=== PATIENT | female | born 1960 | race Caucasian/White ===

== ENCOUNTER 2021-01-21 16:03 | Outpatient (REF) | payer BC, SELFPAY ==
[2021-01-21 14:18] LABS: Calculated LDL 210 mg/dL (<100); Cholesterol 306 mg/dL (<200); Glucose 100 mg/dL (74-106); HDL Cholesterol 81 mg/dL (40-60); TSH 3.09 uIU/mL (0.36-3.74); Triglyceride 76 mg/dL (<150)
== END 2021-01-21 16:04 | disposition home or self-care (01) ==
LOC: NCHCN 16:03
PROVIDERS: PCP Nurse Practitioner Family; Visit Provider Nurse Practitioner Family
DX: Z13.1 Encounter for screening for diabetes mellitus (principal); E78.5 Hyperlipidemia, unspecified; E03.9 Hypothyroidism, unspecified
CPT/HCPCS: 80061; 82947; 84443

== ENCOUNTER 2023-03-24 18:03 | Outpatient (REF) | payer BC, SELFPAY ==
[2023-03-29 14:14] LABS: Helicobacter pylori Ag, Feces Negative (Negative)
== END 2023-03-24 18:04 | disposition home or self-care (01) ==
LOC: NCHCN 18:03
PROVIDERS: PCP Nurse Practitioner Family; Visit Provider Nurse Practitioner Family
DX: K21.9 Gastro-esophageal reflux disease without esophagitis (principal)
CPT/HCPCS: 87338

== ENCOUNTER 2023-06-28 10:48 | Outpatient (REF) | payer BC, SELFPAY | END 2023-06-28 10:49 | disposition home or self-care (01) | LOC: NCHCN 10:48 | PROVIDERS: PCP Nurse Practitioner Family; Visit Provider Registered Nurse | DX: J02.9 Acute pharyngitis, unspecified (principal) | CPT/HCPCS: 87077; 87070 ==

== ENCOUNTER 2023-10-12 13:25 | Outpatient (REF) | payer BC, SELFPAY ==
[2023-10-12 14:45] LABS: HCT 42.2 % (36.0-46.0); HGB 13.5 g/dL (11.2-15.7); MCH 28.9 pg (27.0-33.0); MCV 90 fL (80-95); MPV 10.3 fL (8.0-11.0); Platelet Count 288 10^3/uL (130-400); RBC 4.67 10^6/uL (3.93-5.22); RDW 12.6 % (11.7-14.6); RDW-SD 41.7 fL; WBC 6.45 10^3/uL (4.4-10.8)
[2023-10-12 15:01] LABS: ALT 37 U/L (14-59); AST 23 U/L (15-37); Albumin 3.6 g/dL (3.4-5.0); Alkaline Phosphatase 121 U/L (46-116); Anion Gap 6.8 mmol/L (3-11); BUN 18 mg/dL (7-18); Bilirubin, Total 0.4 mg/dL (0.2-1.0); CO2 29.2 mmol/L (21.0-32.0); CREATININE 1.2 mg/dL (0.55-1.02); Calcium 8.8 mg/dL (8.5-10.1); Chloride 104 mmol/L (98-107); Estimated GFR 50.55 (mL/min/1.73m2); Glucose 121 mg/dL (74-106); Potassium 4.1 mmol/L (3.5-5.1); Sodium 140 mmol/L (136-145); Total Protein 7.1 g/dL (6.4-8.2)
== END 2023-10-12 13:26 | disposition home or self-care (01) ==
LOC: NCHCN 13:25
PROVIDERS: PCP Nurse Practitioner Family; Visit Provider Nurse Practitioner Family
DX: Z01.818 Encounter for other preprocedural examination (principal)
CPT/HCPCS: 80053; 85027

== ENCOUNTER 2024-04-17 20:39 | Outpatient (REF) | payer BC, SELFPAY ==
[2024-04-17 21:57] LABS: HCT 40.4 % (36.0-46.0); HGB 13.2 g/dL (11.2-15.7); MCH 28.9 pg (27.0-33.0); MCHC 32.7 % (32.0-36.0); MCV 88 fL (80-95); MPV 10.4 fL (8.0-11.0); Platelet Count 282 10^3/uL (130-400); RBC 4.57 10^6/uL (3.93-5.22); RDW 12.4 % (11.7-14.6); RDW-SD 39.9 fL; WBC 7.26 10^3/uL (4.4-10.8)
[2024-04-17 22:25] LABS: ALT 30 U/L (14-59); AST 23 U/L (15-37); Albumin 3.6 g/dL (3.4-5.0); Alkaline Phosphatase 136 U/L (46-116); Anion Gap 7.2 mmol/L (3-11); BUN 17 mg/dL (7-18); Bilirubin, Total 0.36 mg/dL (0.2-1.0); CO2 28.8 mmol/L (21.0-32.0); Calcium 9.1 mg/dL (8.5-10.1); Chloride 101 mmol/L (98-107); Estimated GFR 62.52 (mL/min/1.73m2); Glucose 101 mg/dL (74-106); Sodium 137 mmol/L (136-145); TSH (W/Ref FT4) 2.47 uIU/mL (0.36-3.74); Total Protein 7.2 g/dL (6.4-8.2)
[2024-04-17 23:00] LABS: Vitamin D 25 Total 46.8 ng/mL (30-100)
== END 2024-04-17 20:40 | disposition home or self-care (01) ==
LOC: NCHCN 20:39
PROVIDERS: PCP Nurse Practitioner Family; Visit Provider Nurse Practitioner Family
DX: R63.5 Abnormal weight gain (principal); R53.83 Other fatigue
CPT/HCPCS: 80053; 82306; 85027; 83036; 84443

== ENCOUNTER 2024-10-11 21:51 | Outpatient (REF) | payer BC, SELFPAY ==
[2024-10-11 21:14] LABS: Abs Immature Grans 0.03 10^3/uL (0.0-0.06); Absolute Basophil Count 0.06 10^3/uL (0.0-0.2); Absolute Eosinophil Count 0.12 10^3/uL (0.0-0.7); Absolute Lymphocyte Count 2.15 10^3/uL (1.2-3.4); Absolute Monocyte Count 0.74 10^3/uL (0.1-0.8); Absolute Neutrophil Count 4.83 10^3/uL (1.2-6.7); Basophils % 0.8 %; Eosinophils % 1.5 %; HCT 39.4 % (36.0-46.0); HGB 12.7 g/dL (11.2-15.7); Immature Grans % 0.4 %; Lymphocytes % 27.1 %; MCH 28.9 pg (27.0-33.0); MCHC 32.2 % (32.0-36.0); MCV 90 fL (80-95); MPV 10.3 fL (8.0-11.0); Monocytes % 9.3 %; Neutrophils % 60.9 %; Platelet Count 295 10^3/uL (130-400); RDW-SD 42.9 fL; WBC 7.93 10^3/uL (4.4-10.8)
[2024-10-11 21:34] LABS: ESR 15 mm/hr (0-30)
[2024-10-11 22:04] LABS: C-Reactive Protein < 0.50 mg/dL (<or=0.5)
== END 2024-10-11 21:52 | disposition home or self-care (01) ==
LOC: NCHCN 21:51
PROVIDERS: PCP Nurse Practitioner Family; Visit Provider Family Medicine
DX: R50.9 Fever, unspecified (principal)
CPT/HCPCS: 85652; 85025; 86140

== ENCOUNTER 2025-01-22 18:55 | Outpatient (REF) | payer BC, SELFPAY ==
[2025-01-22 15:23] LABS: HCT 41.2 % (36.0-46.0); HGB 13.4 g/dL (11.2-15.7); MCH 29.3 pg (27.0-33.0); MCHC 32.5 % (32.0-36.0); MCV 90 fL (80-95); MPV 10.4 fL (8.0-11.0); Platelet Count 301 10^3/uL (130-400); RBC 4.58 10^6/uL (3.93-5.22); RDW 12.8 % (11.7-14.6); RDW-SD 42.3 fL; WBC 7.76 10^3/uL (4.4-10.8)
[2025-01-22 15:48] LABS: ALT 40 U/L (14-59); AST 27 U/L (15-37); Albumin 3.8 g/dL (3.4-5.0); Alkaline Phosphatase 98 U/L (46-116); Anion Gap 7.6 mmol/L (3-11); BUN 20 mg/dL (7-18); Bilirubin, Total 0.5 mg/dL (0.2-1.0); CO2 27.4 mmol/L (21.0-32.0); CREATININE 0.8 mg/dL (0.55-1.02); Calculated LDL 210 mg/dL (<100); Chloride 102 mmol/L (98-107); Cholesterol 304 mg/dL (<200); Estimated GFR 81.21 (mL/min/1.73m2); Glucose 93 mg/dL (74-106); HDL Cholesterol 71 mg/dL (>or=50); Potassium 4.3 mmol/L (3.5-5.1); Sodium 137 mmol/L (136-145); Total Protein 7.2 g/dL (6.4-8.2); Triglyceride 116 mg/dL (<150)
== END 2025-01-22 18:56 | disposition home or self-care (01) ==
LOC: NCHCN 18:55
PROVIDERS: PCP Nurse Practitioner Family; Visit Provider Nurse Practitioner Family
DX: Z01.818 Encounter for other preprocedural examination (principal); Z13.220 Encounter for screening for lipoid disorders
CPT/HCPCS: 80053; 80061; 85027

== ENCOUNTER 2025-07-17 18:02 | Outpatient (REF) | payer BC, SELFPAY ==
[2025-07-17 21:23] LABS: Cholesterol 191 mg/dL (<200); HDL Cholesterol 72 mg/dL (>or=50)
== END 2025-07-17 18:03 | disposition home or self-care (01) ==
LOC: NCHCN 18:02
PROVIDERS: PCP Nurse Practitioner Family; Visit Provider Nurse Practitioner Family
DX: R53.83 Other fatigue (principal)
CPT/HCPCS: 80061